=== PATIENT | male | born 1945 | race Caucasian/White ===

== ENCOUNTER 2022-08-18 20:34 | Inpatient (IN) | payer OTHER ==
[2022-08-18 21:19] VITALS: BMI 29.7
[2022-08-18] MEDS ORDERED: DICYCLOMINE HCL 10 MG CAPSULE PO PRN (22:15)
[2022-08-18] MEDS ORDERED: NALOXONE HCL (KLOXXADO) 8 MG SPRAY NS PRN (22:15)
[2022-08-18] MEDS ORDERED: LOPERAMIDE HCL 2 MG CAPSULE PO PRN (22:15)
[2022-08-18] MEDS ORDERED: BISMUTH SUBSALICYLATE 524 MG/30 ML PO PRN (22:15)
[2022-08-18] MEDS ORDERED: ACETAMINOPHEN 325 MG TABLET (FP) PO PRN (22:15)
[2022-08-18] MEDS ORDERED: BENZOCAINE/MENTHOL (CHLORASEPTIC ) LOZENGE MM PRN (22:15)
[2022-08-18] MEDS ORDERED: POLYETHYLENE GLYCOL (HEALTHYLAX) 3350 17 GM PACKET PO PRN (22:15)
[2022-08-18] MEDS ORDERED: MAGNESIUM HYDROX 2400MG/30ML ORAL SUSPENSION 30 ML CUP PO PRN (22:15)
[2022-08-18] MEDS ORDERED: ONDANSETRON *ODT* 4 MG TABLET SL PRN (22:15)
[2022-08-18] MEDS ORDERED: MAG HYDROX/AL HYDROX/SIMETH 30 ML UNIT-DOSE CUP PO PRN (22:15)
[2022-08-19] MEDS: LIDOCAINE PATCH REMOVAL MC SCH (00:55)
[2022-08-19] MEDS ORDERED: cloNIDine HCL 0.1 MG TABLET PO ONE ×2 (06:39→08:28)
[2022-08-19] MEDS ORDERED: MELATONIN 5 MG TABLETS PO PRN (08:17)
[2022-08-19] MEDS ORDERED: chlordiazePOXIDE HCL 25 MG CAPSULE PO PRN (08:26)
[2022-08-19] MEDS ORDERED: chlordiazePOXIDE HCL 25 MG CAPSULE PO ONE (08:26)
[2022-08-19] MEDS: LIDOCAINE 5% TOPICAL PATCH TP SCH (10:29)
[2022-08-19] MEDS: BACITRACIN 0.9 GM PACKET TP SCH (10:29)
[2022-08-19] MEDS: metFORMIN HCL 500 MG TABLET (FP) PO SCH ×2 (10:29→17:02)
[2022-08-19] MEDS: PRENATAL VITAMINS W/ FOLIC ACID TABLET (FP) PO SCH (10:30)
[2022-08-19] MEDS: chlordiazePOXIDE HCL 25 MG CAPSULE PO SCH ×2 (11:06→17:02)
[2022-08-19 11:36] LABS: HEMATOCRIT 38.6 % (35.4-49); HEMOGLOBIN 12.2 GM/dL (11.7-16.9); MCH 26.1 pg (25.7-33.7); MCHC 31.5 g/dl (32.0-35.9); MEAN CELL VOLUME 82.8 fl (80-96); MEAN PLT VOLUME 7.3 fl (7.5-11.1); PLATELET COUNT 303 10^3/uL (134-434); RBC 4.66 M/mm3 (4.00-5.60); RDW 19.8 % (11.9-15.9); WHITE BLOOD COUNT 9.5 K/mm3 (4.0-10.0)
[2022-08-19 11:42] LABS: INR 1.41 (0.83-1.09); PROTHROMBIN TIME (PATIENT) 16.3 SEC (9.7-13.0)
[2022-08-19 12:18] LABS: CALCIUM 9.3 mg/dL (8.5-10.1)
[2022-08-19 12:19] LABS: ALBUMIN 3.7 g/dl (3.4-5.0)
[2022-08-19 12:21] LABS: CREATININE 0.9 mg/dL (0.55-1.3)
[2022-08-19 12:23] LABS: BILIRUBIN,TOTAL 2.5 mg/dL (0.2-1)
[2022-08-19] MEDS: WARFARIN NA 2 MG TABLET PO SCH (18:27)
[2022-08-19] MEDS ORDERED: LISINOPRIL 10 MG TABLET PO ONE (23:28)
[2022-08-20] MEDS: THIAMINE HCL 100 MG TABLET (FP) PO SCH ×2 (00:01→22:55)
[2022-08-20] MEDS: chlordiazePOXIDE HCL 25 MG CAPSULE PO SCH ×5 (06:05→22:55)
[2022-08-20] MEDS: metFORMIN HCL 500 MG TABLET (FP) PO SCH ×2 (06:05→17:18)
[2022-08-20] MEDS: BACITRACIN 0.9 GM PACKET TP SCH (09:20)
[2022-08-20] MEDS: ACETAMINOPHEN 325 MG TABLET (FP) PO PRN (09:21)
[2022-08-20] MEDS: LIDOCAINE 5% TOPICAL PATCH TP SCH (09:23)
[2022-08-20] MEDS: PRENATAL VITAMINS W/ FOLIC ACID TABLET (FP) PO SCH (09:23)
[2022-08-20] MEDS: WARFARIN NA 2 MG TABLET PO SCH (17:18)
[2022-08-20] MEDS: LIDOCAINE PATCH REMOVAL MC SCH (22:55)
[2022-08-21] MEDS: chlordiazePOXIDE HCL 25 MG CAPSULE PO SCH ×4 (05:31→22:55)
[2022-08-21] MEDS: metFORMIN HCL 500 MG TABLET (FP) PO SCH ×2 (06:35→17:23)
[2022-08-21] MEDS: LIDOCAINE 5% TOPICAL PATCH TP SCH (10:25)
[2022-08-21] MEDS: PRENATAL VITAMINS W/ FOLIC ACID TABLET (FP) PO SCH (10:25)
[2022-08-21] MEDS: BACITRACIN 0.9 GM PACKET TP SCH (10:25)
[2022-08-21] MEDS: ACETAMINOPHEN 325 MG TABLET (FP) PO PRN (10:27)
[2022-08-21] MEDS: WARFARIN NA 2 MG TABLET PO SCH (17:23)
[2022-08-21] MEDS: THIAMINE HCL 100 MG TABLET (FP) PO SCH (22:56)
[2022-08-21] MEDS: LIDOCAINE PATCH REMOVAL MC SCH (22:56)
[2022-08-22] MEDS ORDERED: chlordiazePOXIDE HCL 10 MG CAPSULE PO PRN
[2022-08-22] MEDS: chlordiazePOXIDE HCL 10 MG CAPSULE PO SCH ×4 (05:24→22:00)
[2022-08-22] MEDS: metFORMIN HCL 500 MG TABLET (FP) PO SCH ×2 (06:47→17:23)
[2022-08-22] MEDS ORDERED: amLODIPine BESYLATE 5 MG TABLET (FP) PO SCH (10:00)
[2022-08-22] MEDS: BACITRACIN 0.9 GM PACKET TP SCH (10:45)
[2022-08-22] MEDS: LISINOPRIL 10 MG TABLET PO SCH (10:46)
[2022-08-22] MEDS: PRENATAL VITAMINS W/ FOLIC ACID TABLET (FP) PO SCH (10:46)
[2022-08-22] MEDS: LIDOCAINE 5% TOPICAL PATCH TP SCH (10:46)
[2022-08-22] MEDS: ACETAMINOPHEN 325 MG TABLET (FP) PO PRN (10:58)
[2022-08-22] MEDS: WARFARIN NA 2 MG TABLET PO SCH (17:22)
[2022-08-22] MEDS: THIAMINE HCL 100 MG TABLET (FP) PO SCH (22:00)
[2022-08-22] MEDS: LIDOCAINE PATCH REMOVAL MC SCH (22:00)
[2022-08-23] MEDS: chlordiazePOXIDE HCL 10 MG CAPSULE PO SCH ×2 (05:45→18:00)
[2022-08-23] MEDS: metFORMIN HCL 500 MG TABLET (FP) PO SCH ×2 (06:14→18:00)
[2022-08-23] MEDS ORDERED: cloNIDine HCL 0.1 MG TABLET PO PRN (07:33)
[2022-08-23] MEDS: BACITRACIN 0.9 GM PACKET TP SCH (09:26)
[2022-08-23] MEDS: PRENATAL VITAMINS W/ FOLIC ACID TABLET (FP) PO SCH (09:26)
[2022-08-23] MEDS: LISINOPRIL 10 MG TABLET PO SCH (09:26)
[2022-08-23] MEDS: LIDOCAINE 5% TOPICAL PATCH TP SCH (09:26)
[2022-08-23 14:36] LABS: INR 1.49 (0.83-1.09); PROTHROMBIN TIME (PATIENT) 17.2 SEC (9.7-13.0)
[2022-08-23] MEDS ORDERED: WARFARIN NA 2 MG TABLET PO SCH (18:00)
[2022-08-23] MEDS: THIAMINE HCL 100 MG TABLET (FP) PO SCH (22:31)
[2022-08-23] MEDS: LIDOCAINE PATCH REMOVAL MC SCH (22:31)
[2022-08-24] MEDS ORDERED: chlordiazePOXIDE HCL 10 MG CAPSULE PO ONE (05:00)
[2022-08-24] MEDS: metFORMIN HCL 500 MG TABLET (FP) PO SCH (05:59)
[2022-08-24] MEDS: LISINOPRIL 10 MG TABLET PO SCH (09:33)
[2022-08-24] MEDS: PRENATAL VITAMINS W/ FOLIC ACID TABLET (FP) PO SCH (09:34)
[2022-08-24] MEDS: LIDOCAINE 5% TOPICAL PATCH TP SCH (09:34)
[2022-08-24] MEDS: BACITRACIN 0.9 GM PACKET TP SCH (09:34)
[2022-08-24 09:41] VITALS: RESP 16
[2022-08-24 13:17] VITALS: BP 167/89; PULSE 76; TEMP 98.6
== END 2022-08-24 15:31 | disposition home or self-care (01) | DRG 897 ==
LOC: YASAS 20:34 → UNDOADMIN 23:07 → Y6N 23:07
PROVIDERS: ADMIT Allergy & Immunology; ATTEND Family Medicine
PROC: HZ2ZZZZ Detoxification Services for Substance Abuse Treatment (ICD-10-PCS; principal; 2022-08-18)
DX: F10.230 Alcohol dependence with withdrawal, uncomplicated (principal); F01-F99 Mental, behavioral and neurodevelopmental disorders; I25.10 Atherosclerotic heart disease of native coronary artery without angina pectoris; I10 Essential (primary) hypertension; Z95.5 Presence of coronary angioplasty implant and graft; Z79.01 Long term (current) use of anticoagulants; I25.2 Old myocardial infarction; E11.9 Type 2 diabetes mellitus without complications; M25.511 Pain in right shoulder; M15.9 Polyosteoarthritis, unspecified; R00.2 Palpitations; H35.30 Unspecified macular degeneration; H54.8 Legal blindness, as defined in USA; Z99.89 Dependence on other enabling machines and devices; W19.XXXA Unspecified fall, initial encounter; Y93.89 Activity, other specified; Y92.230 Patient room in hospital as the place of occurrence of the external cause; Z91.81 History of falling; Z79.84 Long term (current) use of oral hypoglycemic drugs
CPT/HCPCS: 0241U-QW; 36415; 70450-TC; 71045-TC-FY; 71046-TC-FY; 71250-TC; 72125-TC; 72170-TC-FY; 73030-TC-RT-FY; 80053; 82140; 82962; 83690; 83735; 84484; 85025; 85027; 85610; 85730; 86780; 86850; 86900; 86901; 93005; 93010; 99285-25; C9803-CS; U0003; U0005

== ENCOUNTER 2022-08-19 14:13 | Emergency (ER) | payer OTHER ==
[2022-08-19 14:40] VITALS: BP 146/77; PULSE 60; RESP 18; TEMP 99.2; BMI 30.1
[2022-08-19 17:53] LABS: BASO % 1.2 % (0-2.0); EOS % 1.4 % (0-4.5); HEMOGLOBIN 11.1 GM/dL (11.7-16.9); MCH 26.2 pg (25.7-33.7); MCHC 31.8 g/dl (32.0-35.9); MEAN CELL VOLUME 82.5 fl (80-96); MONO % 16.3 % (3.8-10.2); NEUT % 66.1 % (42.8-82.8); PLATELET COUNT 264 10^3/uL (134-434); RBC 4.25 M/mm3 (4.00-5.60); RDW 19.9 % (11.9-15.9); WHITE BLOOD COUNT 6.7 K/mm3 (4.0-10.0)
[2022-08-19 18:04] LABS: INR 1.4 (0.83-1.09); PROTHROMBIN TIME (PATIENT) 16.2 SEC (9.7-13.0)
[2022-08-19 18:07] LABS: ACTIVATED PTT 31.4 SECONDS (25.2-36.5)
[2022-08-19 18:18] LABS: ALBUMIN 3.4 g/dl (3.4-5.0); BLOOD UREA NITROGEN 21.4 mg/dL (7-18); CALCIUM 9.2 mg/dL (8.5-10.1); MAGNESIUM 1.7 mg/dL (1.8-2.4)
[2022-08-19 18:20] LABS: CREATININE 0.9 mg/dL (0.55-1.3)
[2022-08-19 18:23] LABS: BILIRUBIN,TOTAL 3.2 mg/dL (0.2-1); TOT PROT 6.5 g/dl (6.4-8.2)
[2022-08-19] MEDS ORDERED: MAGNESIUM SULF 50% (8.12 MEQ/2 ML-1 GM VIAL) IVPB ONE (19:04)
[2022-08-19] MEDS ORDERED: MAGNESIUM 1GM/D5W - 1 GM/100 ML IVPB IVPB ONE (19:55)
== END 2022-08-19 22:42 | disposition home or self-care (01) ==
LOC: JER 14:13
PROC: 3E033GC Introduction of Other Therapeutic Substance into Peripheral Vein, Percutaneous Approach (ICD-10-PCS; principal; 2022-08-19)
DX: R00.2 Palpitations (principal)
CPT/HCPCS: 0241U-QW; 36415; 71045-TC-FY; 71250-TC; 80053; 82962; 83690; 83735; 84484; 85025; 85610; 85730; 86850; 86900; 86901; 93005; 93010; 99285-25